=== PATIENT | male | born 1990 | race Caucasian/White ===

== ENCOUNTER 2018-02-28 14:45 | Emergency (ER) | payer MEDICAID ==
[~2018-02-28] VITALS: Ht 175.3 cm; Wt 89.0 kg
[2018-02-28 15:12] VITALS: BP 122/85
[2018-02-28] MEDS ORDERED: LIDOcaine 1.5% w/epinephrine 1:200,000 5ml ampul IJ ONE (15:30)
[2018-02-28] MEDS ORDERED: CEPH-572 PO (15:49)
[2018-02-28] MEDS ORDERED: SULF1TAB49 PO (15:49)
== END 2018-02-28 16:01 | disposition home or self-care (01) ==
LOC: ER 14:46
DX: L02.512 Cutaneous abscess of left hand (principal); Z79.2 Long term (current) use of antibiotics
CPT/HCPCS: 10060; 99283; A6266; A6449; J3490

== ENCOUNTER 2024-07-01 00:36 | Inpatient (IN) | payer MEDICAID ==
[~2024-07-01] VITALS: Ht 175.3 cm; Wt 83.2 kg
[2024-07-01 01:43] LABS: BASOPHILS # (AUTO) 0.2 X10'3 (0-0.2); BASOPHILS % (AUTO) 2.1 % (0-1); EOSINOPHILS # (AUTO) 0.2 X10'3 (0-0.9); EOSINOPHILS % (AUTO) 2.6 % (0-6); HEMATOCRIT 46.2 % (42.0-52.0); HEMOGLOBIN 15.7 g/dl (14.0-17.9); LYMPHOCYTES % (AUTO) 22.1 % (21-51); MEAN CORPUSCULAR HEMOGLOBIN 32.2 PG (27.0-31.0); MEAN CORPUSCULAR HGB CONC 33.9 g/dL (33.0-36.5); MEAN PLATELET VOLUME 6.4 FL (7.4-10.4); MONOCYTES # (AUTO) 0.6 X10'3 (0-0.9); MONOCYTES % (AUTO) 6.8 % (2-12); NEUTROPHILS # (AUTO) 5.9 X10'3 (1.8-7.7); NEUTROPHILS % (AUTO) 66.4 % (42-75); PLATELET COUNT 300 X10'3 (140-440); RED BLOOD COUNT 4.86 X10'6 (4.70-6.10); RED CELL DISTRIBUTION WIDTH 16.2 % (11.5-14.5); WHITE BLOOD COUNT 8.9 X10'3 (4.5-11.0)
[2024-07-01 01:57] LABS: ALANINE AMINOTRANSFERASE 35 U/L (12-78); ALBUMIN 3.9 G/DL (3.4-5.0); ALBUMIN/GLOBULIN RATIO 0.9 (1.1-1.5); ALKALINE PHOSPHATASE 65 IU/L (46-116); ANION GAP 10 (8-16); ASPARTATE AMINO TRANSFERASE 64 U/L (10-37); BILIRUBIN,TOTAL 0.4 MG/DL (0.1-1.0); BLOOD UREA NITROGEN 6 MG/DL (7-18); BUN/CREATININE RATIO 6.6 (10.0-20.0); CALCIUM 8.4 MG/DL (8.5-10.1); CHLORIDE 100 MMOL/L (99-107); CREATININE 0.91 MG/DL (0.60-1.10); GLUCOSE 120 MG/DL (70-104); LIPASE > 375 U/L (16-77); POTASSIUM 3.9 MMOL/L (3.5-5.1); SODIUM 138 MMOL/L (135-145); TOTAL CARBON DIOXIDE 28.1 MMOL/L (24-32); TOTAL PROTEIN 8.1 G/DL (6.4-8.2); eCRCL 117 ML/MIN; eGFR > 90 ML/MIN
[2024-07-01] MEDS: normal saline 1000ml 1,000 ML IV ONE ×2 (02:34→03:15)
[2024-07-01] MEDS: pantoprazole 40 MG vial IV ONE (02:35)
[2024-07-01] MEDS: normal saline 1000ml 1,000 ML IV SCH (03:10)
[2024-07-01] MEDS ORDERED: mag hydrox/Alum hydrox/simeth 30ml oral suspension PO PRN (03:10)
[2024-07-01] MEDS ORDERED: magnesium sulf-water 4G/100mL 100 ML IV PRN (03:10)
[2024-07-01] MEDS ORDERED: potassium Cl 20 mEq SR tablet PO PRN ×2 (03:10)
[2024-07-01] MEDS ORDERED: magnesium Cl slow-release 64mg tablet PO PRN (03:10)
[2024-07-01] MEDS ORDERED: magnesium sulf-water 2g/50mL 50 ML IV PRN (03:10)
[2024-07-01] MEDS ORDERED: acetaminophen 325mg tablet PO PRN (03:10)
[2024-07-01] MEDS ORDERED: potassium Cl 40MEQ/1/2NS 520ml 520 ML IV PRN (03:10)
[2024-07-01] MEDS ORDERED: magnesium hydroxide 30ml (MOM) UD suspension PO PRN (03:10)
[2024-07-01] MEDS ORDERED: haloperidol lactate 5mg/ml inj IM PRN (03:15)
[2024-07-01 03:27] LABS: MAGNESIUM 1.9 MG/DL (1.5-2.4); PHOSPHORUS 3.8 MG/DL (2.3-4.5)
[2024-07-01 03:28] LABS: HEMOGLOBIN A1C 5.2 % (4.5-6.2)
[2024-07-01] MEDS ORDERED: NO HOME MEDS (03:34)
[2024-07-01 04:08] VITALS: BP 143/91; RESP 18; TEMP 98; O2SAT 98
[2024-07-01] MEDS: ondansetron/PF 4mg/2ml inj IV PRN (04:29)
[2024-07-01] MEDS: HYDROmorphone inj. 0.5 MG/0.5 ML DISP.SYRIN IV PRN (04:30)
[2024-07-01] MEDS: morphine 2 MG/ML inj. syringe IV PRN (06:37)
[2024-07-01 07:00] VITALS: TEMP 98
[2024-07-01 07:15] LABS: BILIRUBIN,URINE NEGATIVE (Neg); CLARITY,URINE CLEAR (Clear); COLOR,URINE STRAW (Yellow); GLUCOSE, URINE NEGATIVE (Neg); KETONES,URINE NEGATIVE (Neg); LEUKOCYTE ESTERASE ,URINE NEGATIVE (Neg); NITRITES, URINE NEGATIVE (Neg); OCCULT BLOOD,URINE NEGATIVE (Neg); PH,URINE 6.5 (4.8-8.0); PROTEIN,URINE NEGATIVE (Neg); UROBILINOGEN,URINE 0.2 E.U/dL (0.2-1.0)
[2024-07-01 07:21] LABS: URINE AMPHETAMINE SCREEN NEGATIVE (Neg); URINE BARBITUATE SCREEN NEGATIVE (Neg); URINE BENZODIAZEPINES SCREEN NEGATIVE (Neg); URINE CANNABINOID SCREEN NEGATIVE (Neg); URINE COCAINE SCREEN NEGATIVE (Neg); URINE METHADONE SCREEN NEGATIVE (Neg); URINE OPIATE SCREEN NEGATIVE (Neg); URINE PHENCYCLIDINE SCREEN NEGATIVE (Neg)
[2024-07-01 07:33] LABS: UA COLLECTION TYPE NON-SPECIFIED
[2024-07-01] MEDS: ringers solution, lacted 1,000 ML IV SCH (07:37)
[2024-07-01] MEDS: K and/or MAG REPLACEMENT MC SCH (08:00)
[2024-07-01] MEDS ORDERED: heparin, porcine 5000 units/ml vial SQ SCH (08:00)
[2024-07-01] MEDS: docusate sod 100mg capsule PO SCH (08:00)
[2024-07-01] MEDS: pantoprazole 40 MG vial IV SCH (08:22)
[2024-07-01] MEDS: thiamine 100mg/ml 2ml inj. IV SCH (08:22)
[2024-07-01] MEDS: folic acid 1mg/0.2ml inj IV SCH (08:23)
[2024-07-01] MEDS: multivitamins, therapeutics tablet PO SCH (08:23)
[2024-07-01 09:01] LABS: APTT 30 SECONDS (22-32); INR 1.1 INR; PROTHROMBIN TIME 11.6 SECONDS (9.0-12.0)
[2024-07-01 09:48] VITALS: BP 140/80; PULSE 97; RESP 22; TEMP 97.6; O2SAT 97
[2024-07-01] MEDS: LORazepam 2 mg/ml vial IV PRN (14:38)
[2024-07-01 19:00] VITALS: BP 146/85; PULSE 67; RESP 14; TEMP 98; O2SAT 99
[2024-07-01] MEDS: HYDROmorphone inj. 0.5 MG/0.5 ML DISP.SYRIN IV ONE (19:26)
[2024-07-01 21:00] VITALS: BP 146/85; PULSE 100; RESP 16; TEMP 98; O2SAT 99
[2024-07-02] MEDS: morphine 2 MG/ML inj. syringe IV PRN (00:15)
[2024-07-02 02:00] VITALS: BP 139/82; PULSE 99; RESP 20; TEMP 98.3; O2SAT 100
[2024-07-02 05:58] LABS: BASOPHILS # (AUTO) 0.1 X10'3 (0-0.2); BASOPHILS % (AUTO) 0.8 % (0-1); EOSINOPHILS # (AUTO) 0.4 X10'3 (0-0.9); EOSINOPHILS % (AUTO) 4.9 % (0-6); HEMATOCRIT 41.7 % (42.0-52.0); HEMOGLOBIN 14.3 g/dl (14.0-17.9); LYMPHOCYTES # (AUTO) 0.8 X10'3 (1.1-4.8); LYMPHOCYTES % (AUTO) 8.6 % (21-51); MEAN CORPUSCULAR HEMOGLOBIN 32.8 PG (27.0-31.0); MEAN CORPUSCULAR HGB CONC 34.2 g/dL (33.0-36.5); MEAN CORPUSCULAR VOLUME 96.1 FL (78-98); MEAN PLATELET VOLUME 7.1 FL (7.4-10.4); MONOCYTES # (AUTO) 0.8 X10'3 (0-0.9); MONOCYTES % (AUTO) 9.3 % (2-12); NEUTROPHILS # (AUTO) 6.8 X10'3 (1.8-7.7); NEUTROPHILS % (AUTO) 76.4 % (42-75); PLATELET COUNT 231 X10'3 (140-440); RED BLOOD COUNT 4.34 X10'6 (4.70-6.10); RED CELL DISTRIBUTION WIDTH 15.9 % (11.5-14.5); WHITE BLOOD COUNT 8.9 X10'3 (4.5-11.0)
[2024-07-02 07:00] VITALS: BP 146/99; PULSE 104; RESP 14; TEMP 97.9; O2SAT 98
[2024-07-02 07:04] LABS: ALANINE AMINOTRANSFERASE 24 U/L (12-78); ALBUMIN/GLOBULIN RATIO 0.9 (1.1-1.5); ALKALINE PHOSPHATASE 56 IU/L (46-116); ANION GAP 10 (8-16); ASPARTATE AMINO TRANSFERASE 37 U/L (10-37); BILIRUBIN,TOTAL 1.1 MG/DL (0.1-1.0); BLOOD UREA NITROGEN 6 MG/DL (7-18); CALCIUM 8.5 MG/DL (8.5-10.1); CHLORIDE 99 MMOL/L (99-107); CHOL/HDL RATIO 1.8 (0.00-4.99); CHOLESTEROL 170 MG/DL (0-200); CREATININE 0.75 MG/DL (0.60-1.10); GLUCOSE 77 MG/DL (70-104); HDL CHOLESTEROL 93 MG/DL (35-60); LDL CHOLESTEROL 67 MG/DL (50-100); POTASSIUM 3.8 MMOL/L (3.5-5.1); SODIUM 134 MMOL/L (135-145); TOTAL CARBON DIOXIDE 24.8 MMOL/L (24-32); TOTAL PROTEIN 6.5 G/DL (6.4-8.2); TRIGLYCERIDES 53 MG/DL (20-135); eCRCL 141 ML/MIN; eGFR > 90 ML/MIN
[2024-07-02 07:37] LABS: LIPASE > 375 U/L (16-77)
[2024-07-04] MEDS ORDERED: thiamine 100mg tablet PO SCH (08:00)
[2024-07-05] MEDS ORDERED: folic acid 1mg tablet PO SCH (08:00)
== END 2024-07-02 14:25 | disposition left against medical advice (07) | DRG 282 ==
LOC: ER 00:36 → ED HOLD 03:12 → EEVIPCON 03:12 → EDBEDREQ 03:28 → ORTHO 4S 04:07
PROVIDERS: ADMIT Internal Medicine Sleep Medicine; ATTEND Internal Medicine
DX: K85.20 Alcohol induced acute pancreatitis without necrosis or infection (principal); K92.0 Hematemesis; K62.5 Hemorrhage of anus and rectum; Z53.29 Procedure and treatment not carried out because of patient's decision for other reasons; Z79.899 Other long term (current) drug therapy
CPT/HCPCS: 36415; 76700; 80053; 80061; 80305; 81003; 83036; 83690; 83735; 84100; 84132; 85025; 85610; 85730; 86885; 86900; 86901; 87081; 96374; 99285; G0378; J1171; J2060; J2270; J2405; J2470; J3411; J3490; J7030; J7120

== ENCOUNTER 2024-07-06 23:05 | Emergency (ER) | payer MEDICAID ==
[~2024-07-06] VITALS: Ht 172.7 cm; Wt 86.4 kg
[2024-07-06 23:11] VITALS: BP 126/68; PULSE 129; RESP 16; TEMP 101.9; O2SAT 98
[2024-07-06 23:50] LABS: BASOPHILS # (AUTO) 0.1 X10'3 (0-0.2); BASOPHILS % (AUTO) 0.9 % (0-1); EOSINOPHILS # (AUTO) 0.1 X10'3 (0-0.9); EOSINOPHILS % (AUTO) 0.5 % (0-6); HEMATOCRIT 38.5 % (42.0-52.0); LYMPHOCYTES # (AUTO) 1.1 X10'3 (1.1-4.8); LYMPHOCYTES % (AUTO) 8.2 % (21-51); MEAN CORPUSCULAR HGB CONC 33.9 g/dL (33.0-36.5); MEAN CORPUSCULAR VOLUME 94.3 FL (78-98); MEAN PLATELET VOLUME 6.1 FL (7.4-10.4); MONOCYTES # (AUTO) 1.1 X10'3 (0-0.9); MONOCYTES % (AUTO) 8.4 % (2-12); NEUTROPHILS # (AUTO) 10.6 X10'3 (1.8-7.7); PLATELET COUNT 259 X10'3 (140-440); RED BLOOD COUNT 4.08 X10'6 (4.70-6.10); RED CELL DISTRIBUTION WIDTH 15.9 % (11.5-14.5); WHITE BLOOD COUNT 12.9 X10'3 (4.5-11.0)
[2024-07-07 00:07] LABS: ALANINE AMINOTRANSFERASE 32 U/L (12-78); ALBUMIN 3.5 G/DL (3.4-5.0); ALBUMIN/GLOBULIN RATIO 0.9 (1.1-1.5); ALKALINE PHOSPHATASE 59 IU/L (46-116); ANION GAP 10 (8-16); ASPARTATE AMINO TRANSFERASE 45 U/L (10-37); BILIRUBIN,TOTAL 0.4 MG/DL (0.1-1.0); BLOOD UREA NITROGEN 5 MG/DL (7-18); BUN/CREATININE RATIO 5.5 (10.0-20.0); CALCIUM 8.4 MG/DL (8.5-10.1); CHLORIDE 101 MMOL/L (99-107); CREATININE 0.91 MG/DL (0.60-1.10); GLUCOSE 102 MG/DL (70-104); POTASSIUM 3.3 MMOL/L (3.5-5.1); SODIUM 138 MMOL/L (135-145); TOTAL CARBON DIOXIDE 26.9 MMOL/L (24-32); TOTAL PROTEIN 7.6 G/DL (6.4-8.2); eCRCL 113 ML/MIN; eGFR > 90 ML/MIN
[2024-07-07 00:15] LABS: PRO BRAIN NATRIURETIC PEPTIDE 43 PG/ML (0-125)
[2024-07-07] MEDS: acetaminophen 325mg tablet PO ONE (00:56)
[2024-07-07] MEDS: ibuprofen tablet 400 MG TABLET PO ONE (00:57)
[2024-07-07] MEDS: penicillin G benzathine 1.2 million unit/2ml syringe IM ONE (00:59)
== END 2024-07-07 00:20 | disposition home or self-care (01) ==
LOC: ER 23:06
DX: J02.0 Streptococcal pharyngitis (principal); R07.89 Other chest pain
CPT/HCPCS: 36415; 80053; 83880; 84145; 84484; 85025; 93005; 96372; 99284; J0561

== ENCOUNTER 2024-07-29 11:50 | Emergency (ER) | payer MEDICAID | END 2024-07-29 13:35 | disposition left against medical advice (07) | LOC: ER 11:51 | DX: Z00.00 Encounter for general adult medical examination without abnormal findings (principal); Z53.21 Procedure and treatment not carried out due to patient leaving prior to being seen by health care provider ==

== ENCOUNTER 2024-11-01 17:29 | Emergency (ER) | payer MEDICAID | END 2024-11-01 18:03 | disposition left against medical advice (07) | LOC: ER 17:31 | DX: L98.499 Non-pressure chronic ulcer of skin of other sites with unspecified severity (principal); Z53.21 Procedure and treatment not carried out due to patient leaving prior to being seen by health care provider ==

== ENCOUNTER 2024-12-25 21:20 | Inpatient (IN) | payer MEDICAID ==
[~2024-12-25] VITALS: Ht 170.2 cm; Wt 81.8 kg
[2024-12-25] MEDS: normal saline 1000ml 1,000 ML IV ONE ×2 (21:40→22:20)
[2024-12-25 21:45] LABS: BASOPHILS # (AUTO) 0.1 X10'3 (0-0.2); BASOPHILS % (AUTO) 1.2 % (0-1); EOSINOPHILS # (AUTO) 0.1 X10'3 (0-0.9); EOSINOPHILS % (AUTO) 1.8 % (0-6); HEMATOCRIT 40.3 % (42.0-52.0); HEMOGLOBIN 13.9 g/dl (14.0-17.9); LYMPHOCYTES # (AUTO) 1.5 X10'3 (1.1-4.8); LYMPHOCYTES % (AUTO) 21.4 % (21-51); MEAN CORPUSCULAR HEMOGLOBIN 32.8 PG (27.0-31.0); MEAN CORPUSCULAR HGB CONC 34.5 g/dL (33.0-36.5); MONOCYTES # (AUTO) 0.3 X10'3 (0-0.9); MONOCYTES % (AUTO) 4.9 % (2-12); NEUTROPHILS % (AUTO) 70.7 % (42-75); PLATELET COUNT 294 X10'3 (140-440); RED BLOOD COUNT 4.24 X10'6 (4.70-6.10); WHITE BLOOD COUNT 7.1 X10'3 (4.5-11.0)
[2024-12-25] MEDS: ondansetron/PF 4mg/2ml inj IV ONE (21:58)
[2024-12-25] MEDS: morphine 4 MG/ML inj SYRINge IV ONE (21:58)
[2024-12-25 21:59] LABS: ALANINE AMINOTRANSFERASE 56 U/L (12-78); ALBUMIN 3.7 G/DL (3.4-5.0); ALBUMIN/GLOBULIN RATIO 1.1 (1.1-1.5); ALKALINE PHOSPHATASE 67 IU/L (46-116); ANION GAP 12 (8-16); ASPARTATE AMINO TRANSFERASE 82 U/L (10-37); BILIRUBIN,TOTAL 0.7 MG/DL (0.1-1.0); BLOOD UREA NITROGEN 5 MG/DL (7-18); BUN/CREATININE RATIO 5.7 (10.0-20.0); CALCIUM 8.1 MG/DL (8.5-10.1); CHLORIDE 104 MMOL/L (99-107); CREATININE 0.88 MG/DL (0.60-1.10); GLUCOSE 99 MG/DL (70-104); POTASSIUM 3.4 MMOL/L (3.5-5.1); SODIUM 143 MMOL/L (135-145); TOTAL CARBON DIOXIDE 27.3 MMOL/L (24-32); eCRCL 113 ML/MIN; eGFR > 90 ML/MIN
[2024-12-25 22:05] LABS: LIPASE 310 U/L (16-77)
[2024-12-25 22:11] LABS: ETHANOL 174 MG/DL (<10); LACTATE DEHYDROGENASE 303 U/L (85-227)
[2024-12-26] MEDS ORDERED: HYDROcodone/acetaminophen 5mg/325mg tablet PO PRN (00:10)
[2024-12-26] MEDS ORDERED: magnesium sulf-water 4G/100mL 100 ML IV PRN (00:10)
[2024-12-26] MEDS ORDERED: potassium Cl 40MEQ/1/2NS 520ml 520 ML IV PRN (00:10)
[2024-12-26] MEDS ORDERED: acetaminophen 325mg tablet PO PRN ×2 (00:10)
[2024-12-26] MEDS ORDERED: magnesium sulf-water 2g/50mL 50 ML IV PRN (00:10)
[2024-12-26] MEDS ORDERED: potassium Cl 20 mEq SR tablet PO PRN ×2 (00:10)
[2024-12-26] MEDS ORDERED: HYDROcodone/acetaminophen 10/325mg tab PO PRN (00:10)
[2024-12-26] MEDS ORDERED: ondansetron/PF 4mg/2ml inj IV PRN (00:10)
[2024-12-26] MEDS ORDERED: mag hydrox/Alum hydrox/simeth 30ml oral suspension PO PRN (00:10)
[2024-12-26] MEDS ORDERED: magnesium Cl slow-release 64mg tablet PO PRN (00:10)
[2024-12-26] MEDS ORDERED: NO HOME MEDS (00:14)
[2024-12-26] MEDS ORDERED: LORazepam 2 mg/ml vial IV PRN (00:15)
[2024-12-26] MEDS ORDERED: ringers solution, lactated 500ml IV solution IV SCH (00:15)
[2024-12-26] MEDS ORDERED: haloperidol lactate 5mg/ml inj IM PRN (00:15)
[2024-12-26] MEDS ORDERED: morphine 4 MG/ML inj SYRINge IV PRN (01:05)
[2024-12-26 01:15] VITALS: BP 141/81; PULSE 132; RESP 17; TEMP 98.5; O2SAT 97
[2024-12-26] MEDS ORDERED: nicotine 14mg patch - 24hr TD SCH (08:00)
[2024-12-26] MEDS ORDERED: enoxaparin 40mg/0.4ml syringe SUBCUT SCH (08:00)
[2024-12-26] MEDS ORDERED: K and/or MAG REPLACEMENT MC SCH (08:00)
[2024-12-26] MEDS ORDERED: pantoprazole 40 MG vial IV SCH (08:00)
[2024-12-26] MEDS ORDERED: folic acid 1mg/0.2ml inj IV SCH (08:00)
[2024-12-26] MEDS ORDERED: thiamine 100mg/ml 2ml inj. IV SCH (08:00)
== END 2024-12-26 01:55 | disposition left against medical advice (07) | DRG 282 ==
LOC: ER 21:21 → ED HOLD 23:30 → ORTHO 4S 12-26 01:05
PROVIDERS: ADMIT Internal Medicine Pulmonary Disease; ATTEND Internal Medicine Pulmonary Disease
DX: K85.20 Alcohol induced acute pancreatitis without necrosis or infection (principal); E87.6 Hypokalemia; F10.929 Alcohol use, unspecified with intoxication, unspecified; Y90.6 Blood alcohol level of 120-199 mg/100 ml; F12.90 Cannabis use, unspecified, uncomplicated; Z53.29 Procedure and treatment not carried out because of patient's decision for other reasons; F17.210 Nicotine dependence, cigarettes, uncomplicated; Z63.5 Disruption of family by separation and divorce; Z63.4 Disappearance and death of family member
CPT/HCPCS: 36415; 74176; 80053; 80320; 83605; 83615; 83690; 84145; 85025; 85651; 87040; 87081; 93005; 96361; 96374; 96375; 99285; G0378; J2270; J2405; J7030; J7120

== ENCOUNTER 2025-02-20 18:20 | Emergency (ER) | payer MEDICAID ==
[~2025-02-20] VITALS: Ht 167.6 cm; Wt 66.3 kg
[~2025-02-20 18:20] MED LIST: NO HOME MEDS
[2025-02-20 18:29] VITALS: BP 106/77; PULSE 110; RESP 18; TEMP 98.2; O2SAT 99
== END 2025-02-21 00:49 | disposition left against medical advice (07) ==
LOC: ER 18:21
DX: L02.416 Cutaneous abscess of left lower limb (principal); Z53.21 Procedure and treatment not carried out due to patient leaving prior to being seen by health care provider

== ENCOUNTER 2025-02-21 01:45 | Emergency (ER) | payer MEDICAID ==
[~2025-02-21] VITALS: Ht 175.3 cm; Wt 77.3 kg
[2025-02-21 01:50] VITALS: BP 132/89; PULSE 112; RESP 16; TEMP 98.5; O2SAT 100
== END 2025-02-21 05:01 | disposition left against medical advice (07) ==
LOC: ER 01:46
DX: Z02.9 Encounter for administrative examinations, unspecified (principal); Z53.21 Procedure and treatment not carried out due to patient leaving prior to being seen by health care provider

== ENCOUNTER 2025-02-27 10:09 | Emergency (ER) | payer MEDICAID ==
[~2025-02-27] VITALS: Ht 172.7 cm; Wt 75.5 kg
[2025-02-27 10:13] VITALS: BP 125/76; PULSE 99; RESP 18; O2SAT 100
--- NOTE | 2025-02-27 12:09 | Physician Documentation ---
History of Present Illness ~ Chief Complaint: Medical Clearance Stated Complaint: MED CLEARENCE Time Seen by MD: 10:21 Primary Medical Doctor: none HPI 35-year-old male presents to the ED for medical clearance. He states that he used ETOH and meth yesterday. He has been regarding severe withdrawal. Requesting medical clearance to go to recovery Center Day of Onset: Feb 27, 2025 Tetanus within 5 years?: Yes Medication Reconciliation Allergies: Coded Allergies: No Known Allergies (Unverified , 02/27/25) Miscellaneous Medications Home Med List (No Home Medications), (Reported) Past Medical History Past Medical History: No Pertinent History Past Surgical History: noncontributory Lives In: Home Occupation: employed Review of Systems All Other Systems at this time: Reviewed and Negative ROS As stated above in the HPI, otherwise all systems are reviewed and negative. Physical Exam Vital Signs: Temperature: 97.9, Source: Temporal, Heart Rate: 99, Respiratory Rate: 18, BP: 125/76, Pulse Oximetry: 100, Weight: 75.450 Physical Exam General: Alert, no apparent distress. HEENT: PERRL, EOMI, no injection, moist mucous membranes. Respiratory: Lungs clear, no respiratory distress. Neurologic: Oriented x4. Psychiatric: Normal mood and affect. Skin: Normal color, warm and dry. No edema, no ecchymosis. Progress Results/Orders Results/Orders Vital Signs 02/27/25 10:13 Temp 97.9 Pulse 99 Resp 18 B/P (MAP) 125/76 Pulse Ox 100 Medical Decision Making Findings Present with any signs of acute ETOH or methamphetamine withdrawal sounds are reassuring throughout his stay. I do not see any reason not to medically clear him for recovery Differential Dx:Considerations: Include: Intoxication-Alcohol, Intoxication- Other drug, Personality disorder, Substance abuse disorder, Acute delirium, Closed head injury, Cervical spine injury, Skull fracture, Fracture(s), Abrasion, Contusion, Foreign body, Hematoma, Laceration, Alcohol withdrawl syndrom, Encephalopathy, Hepatitis, Medically stable, Other Departure Disposition: 01 HOME / SELF CARE / HOMELESS Impression: Primary Impression: General medical exam Discharge Instructions: Medical Screening Exam Additional Instructions: Medically cleared for recovery Referrals: NO PRIMARY CARE PROVIDER (PCP) Education Educated: Patient Educated regarding: diagnosis Signature Scribe Signature: j Attestation: The note accurately reflects work and decisions made by me.Watson Brasher NP 02/27/25 12:09 WATSON ROSSI NP Feb 27, 2025 12:09
[2025-02-27 12:25] VITALS: TEMP 97.9
== END 2025-02-27 12:26 | disposition home or self-care (01) ==
LOC: ER 10:10
DX: F15.23 Other stimulant dependence with withdrawal (principal)
CPT/HCPCS: 99281

== ENCOUNTER 2025-06-07 02:11 | Emergency (ER) | payer MEDICAID ==
[~2025-06-07] VITALS: Ht 175.3 cm; Wt 72.6 kg
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
[2025-06-07] MEDS ORDERED: iohexol 300mg/ml 100ml inj. ONE (02:28)
--- NOTE | 2025-06-07 03:53 | RADIOLOGY REPORT ---
CLINICAL INDICATION: pain TECHNIQUE: DI ANKLE,LIMITED (AP/LAT) Comparison: None FINDINGS/IMPRESSION: : There is no definite evidence of acute fracture or dislocation. If fracture is strongly suspected, recommend short interval repeat imaging for re-evaluation. No evidence of tibiotalar joint effusion. Soft tissues are unremarkable.
--- NOTE | 2025-06-07 03:57 | RADIOLOGY REPORT ---
Exam: CT CT CHEST ABDOMEN PELVIS W/ IV CONTRAST History: truama Comparison Study: CT CT ABDOMEN PELVIS on DOS: 12/26/24, DI CHEST,SINGLE VIEW on DOS: 07/07/24 Technique: Multidetector spiral CT of the chest, abdomen and pelvis was performed from lower neck to pubic symphysis Axial, coronal and sagittal multiplanar reformats were performed by the technologist on a separate workstation. Radiation Dose : 1. Chest/Abdomen/Pelvis: CTDIvol 26.91 mGy, DLP 2454.8 mGy*cm. Findings: Lower neck: Normal thyroid. Lungs: No focal consolidation, pleural effusion or pneumothorax. Heart/Vascular Structures: Normal heart size. No pericardial effusion. Lymph Nodes: No adenopathy Pleura: No pleural effusion or significant pneumothorax. Liver: The liver is normal in size. Hepatic steatosis. No focal lesions. Normal hepatic parenchymal attenuation. Gallbladder and Biliary Tree: Unremarkable Spleen: Unremarkable Pancreas: The pancreas is normal in appearance without focal lesions. Adrenal Glands: Unremarkable Kidneys: Kidneys demonstrate normal symmetric parenchymal attenuation without focal lesions, calculi or hydronephrosis. Bladder: Unremarkable Bowel: The stomach is grossly normal in appearance. Small bowel and colon are normal in caliber and distribution. The appendix is normal. Ascites: Absent Lymphadenopathy: No mesenteric, retroperitoneal or periportal lymphadenopathy. Abdominal Wall and Mesentery: Unremarkable. Vasculature: The visualized abdominal aorta is normal in size and caliber. Pelvic Organs: Unremarkable Musculoskeletal: No aggressive focal bony lesions, acute fractures or dislocation. IMPRESSION: 1. No acute findings involving the chest, abdomen or pelvis. 2. Hepatic steatosis.
--- NOTE | 2025-06-07 04:00 | RADIOLOGY REPORT ---
EXAM: CT CT CERVICAL SPINE HISTORY: pain COMPARISON: None CTDIvol 20 mGy, DLP 529 mGy*cm. TECHNIQUE: Multiple axial CT images of the spine were obtained using bone algorithm. Axial and coronal reformatting was done. Bone and soft tissue windows were reviewed. FINDINGS: No evidence of vertebral fracture or compresison deformity. External cervical collar. Straightening of normal lordotic curvature without listhesis. Normal alignment of the craniocervical junction. Mild spondylosis of C5-C6. No acute finding of the imaged intracranial contents, neck soft tissues, or superior chest. IMPRESSION: 1. No acute finding of the cervical spine.
--- NOTE | 2025-06-07 04:00 | RADIOLOGY REPORT ---
EXAM: CT CT HEAD INDICATION: truama TECHNIQUE: CT of the head without intravenous contrast. Radiation Dose : 1. Head: CT Dose: CTDI volume is 69.11 mGy. Dose-length product is 1337.84 mGy*cm The dose indicators for CT are the volume Computed Tomography (CT) Dose Index (CTDIvol) and the Dose Length Product (DLP), and are measured in units of mGy and mGy-cm, respectively. These indicators are not patient dose, but values generated from the CT scanner acquisition factors. The report includes radiation exposure data for exposures received during this examination. COMPARISON: CT CT FACIAL BONES/SOFT TISSUE on DOS: 06/07/25 FINDINGS: There is no evidence of acute intracranial hemorrhage, extra-axial collection, mass effect, midline shift, herniation or hydrocephalus. The ventricles, sulci and cisterns are age appropriate. The bennett-white differentiation is intact. The visualized paranasal sinuses and mastoid air cells are clear. Mild right paramedian frontal scalp soft tissue swelling. surrounding soft tissues and osseous structures are otherwise unremarkable. IMPRESSION: 1. No acute intracranial abnormality. 2. Mild right paramedian frontal scalp soft tissue swelling. Radiation optimization: All CT scans at this facility use at least one of these dose optimization techniques: automated exposure control mA and/or kV adjustment per patient size (includes targeted exams where dose is matched to clinical indication) or iterative reconstruction.
--- NOTE | 2025-06-07 04:04 | RADIOLOGY REPORT ---
HISTORY: truama TECHNIQUE: Nonenhanced axial images through the facial bones with coronal and sagittal MPR. Radiation Dose Information: CT Dose: CTDI volume is 54.49 mGy. Dose-length product is 1137.39 mGy*cm COMPARISON: CT CT HEAD on DOS: 06/07/25 FINDINGS: Mandible: Unremarkable Maxilla: Unremarkable Zygomatic arches: Unremarkable Nasal bone: Unremarkable Orbits: Mild right paramedian frontal scalp and right periorbital and preseptal soft tissue swelling and edema. The globes are intact and symmetric without evidence of proptosis or retro bulbar process. Sinuses: Clear Facial swelling: None IMPRESSION: 1. Mild right paramedian frontal scalp and right periorbital and preseptal soft tissue swelling and edema. Radiation optimization: All CT scans at this facility use at least one of these dose optimization techniques: automated exposure control mA and/or kV adjustment per patient size (includes targeted exams where dose is matched to clinical indication) or iterative reconstruction.
[2025-06-07 04:37] VITALS: BP 110/62; PULSE 106; RESP 15; TEMP 98.1; O2SAT 96
[2025-06-07] MEDS: ondansetron 4mg rapidly disintigrating tab PO ONE (04:47)
[2025-06-07] MEDS: amox tr/potassium clavulanate 875/125mg TAB PO ONE (04:47)
[2025-06-07] MEDS: bacitracin 15gm ointment TP ONE (04:47)
== END 2025-06-07 05:59 | disposition home or self-care (01) ==
LOC: ER 02:13
DX: S00.83XA Contusion of other part of head, initial encounter (principal); S40.812A Abrasion of left upper arm, initial encounter; S40.811A Abrasion of right upper arm, initial encounter; S20.311A Abrasion of right front wall of thorax, initial encounter; W17.89XA Other fall from one level to another, initial encounter; Y93.89 Activity, other specified; Y92.89 Other specified places as the place of occurrence of the external cause; Y99.8 Other external cause status
CPT/HCPCS: 70450; 70486; 71250; 72125; 73600; 74176; 99285; Q9967

== ENCOUNTER 2025-06-28 17:30 | Emergency (ER) | payer MEDICAID ==
[~2025-06-28] VITALS: Ht 165.1 cm; Wt 213.6 kg
[2025-06-28 17:57] LABS: MEAN PLATELET VOLUME 6.4 FL (7.4-10.4); RED CELL DISTRIBUTION WIDTH 14.2 % (11.5-14.5)
[2025-06-28 18:08] LABS: CREATININE 0.89 MG/DL (0.60-1.10); ETHANOL 289 MG/DL (<10); TOTAL CARBON DIOXIDE 26.5 MMOL/L (24-32); eGFR > 90 ML/MIN
[2025-06-28 18:58] VITALS: BP 145/79
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
[2025-06-28] MEDS: normal saline 1000ML IV soln IVB ONE ×3 (19:27→20:11)
[2025-06-28 20:12] VITALS: PULSE 82; RESP 16; TEMP 98.6; O2SAT 99
== END 2025-06-28 20:39 | disposition home or self-care (01) ==
LOC: ER 17:30
DX: F10.129 Alcohol abuse with intoxication, unspecified (principal); K85.20 Alcohol induced acute pancreatitis without necrosis or infection; Y90.9 Presence of alcohol in blood, level not specified
CPT/HCPCS: 36415; 80053; 80320; 83690; 85025; 96360; 99283; J7030